=== PATIENT | female | born 1935 | race Caucasian/White ===

== ENCOUNTER 2023-03-04 23:14 | Inpatient (IN) | payer MEDICAID, OTHER ==
[~2023-03-04] VITALS: Ht 170.2 cm; Wt 95.5 kg
[~2023-03-04 23:14] MED LIST: AMLO-258 PO; ATOR10TA PO
[2023-03-05 00:18] LABS: BASOPHILS % (AUTO) 0.4 % (0.0-2.0); EOSINOPHILS % (AUTO) 0.9 % (1.0-6.0); HEMATOCRIT 47.8 % (36-46); HEMOGLOBIN 15.9 g/dL (12.0-16.0); LYMPHOCYTES # (AUTO) 1.2 K/uL (1.0-4.8); LYMPHOCYTES % (AUTO) 18.4 % (22.0-44.0); MEAN CORPUSCULAR HEMOGLOBIN 31.9 pg (26.0-34.0); MEAN CORPUSCULAR HGB CONC 33.3 G/dL (31.0-37.0); MEAN CORPUSCULAR VOLUME 96 fL (80-100); MONOCYTES # (AUTO) 0.6 K/uL (0.1-1.0); MONOCYTES % (AUTO) 9.1 % (2.0-9.0); NEUTROPHILS # (AUTO) 4.7 K/uL (1.8-7.7); NEUTROPHILS % (AUTO) 71.2 % (40.0-70.0); PLATELET COUNT (AUTO) 208 K/uL (150-450); RED BLOOD CELL COUNT(AUTO) 4.98 MIL/uL (4.00-5.20); RED CELL DISTRIBUTION WIDTH 15.5 % (11.5-14.5)
[2023-03-05 00:27] LABS: CALCIUM, TOTAL 9.1 mg/dL (8.8-10.5); CREATININE 0.97 mg/dL (0.60-1.30); POTASSIUM 3.4 mmol/L (3.5-5.1)
[2023-03-05 00:35] LABS: LACTIC ACID 1.1 mmol/L (0.4-2.0)
[2023-03-05 00:51] LABS: ALBUMIN 4.2 g/dL (3.4-5.0); BILIRUBIN,TOTAL 1.3 mg/dL (0.1-1.0); TOTAL PROTEIN, SERUM 7.7 g/dL (6.4-8.2)
[2023-03-05 00:55] LABS: APPEARANCE,URINE HAZY (CLEAR); BILIRUBIN,URINE NEGATIVE (NEGATIVE); GLUCOSE, URINE (UA) NEGATIVE (NEGATIVE); KETONES,URINE NEGATIVE (NEGATIVE); LEUKOCYTE ESTERASE ,URINE LARGE (NEGATIVE); NITRATE,URINE NEGATIVE (NEGATIVE); OCCULT BLOOD,URINE MODERATE (NEGATIVE); PH,URINE 5.5 (5.0-8.0); PROTEIN,URINE 30-70 mg/dL (NEGATIVE); SPECIFIC GRAVITIY, URINE 1.024 (1.003-1.030)
[2023-03-05 00:57] LABS: INR 1.1 (0.9-1.1); PROTHROMBIN TIME 11.8 SEC (9.4-11.6)
[2023-03-05 01:05] LABS: BACTERIA,URINE Few /HPF (None Seen); SQUAMOUS EPITHELIAL CELL,UR Moderate /LPF (None Seen); WBC,URINE 26-50 /HPF (0-5)
[2023-03-05] MEDS ORDERED: VANCOMYCIN HCL 1 GM in DEXTROSE 5%-WATER 250 ML IV ONE (03:15)
[2023-03-05] MEDS ORDERED: VANCOMYCIN 1GM/WATER(PEG/NADA) 200 ML IV ONE ×2 (03:15→04:15)
[2023-03-05] MEDS ORDERED: DEXTROSE 5%-WATER 250 ML IV ONE (04:01)
[2023-03-05 04:55] VITALS: BP 155/100
[2023-03-05] MEDS ORDERED: SODIUM CHLORIDE 0.9% 500 ML IV ONE (05:23)
[2023-03-05 07:38] VITALS: BP 130/95
[2023-03-05] MEDS ORDERED: ZOLPIDEM TARTRATE 5 MG TABLET PO PRN (11:15)
[2023-03-05] MEDS ORDERED: ACETAMINOPHEN 325 MG TABLET PO PRN (11:15)
[2023-03-05] MEDS ORDERED: ONDANSETRON HCL 4 MG/2 ML VIAL IVP PRN (11:15)
[2023-03-05] MEDS ORDERED: BISACODYL 10 MG RECTAL RECTAL SUPPOSITORY PR PRN (11:15)
[2023-03-05] MEDS ORDERED: MAGNESIUM HYDROXIDE SUSPENSION 30 ML UDCUP PO PRN (11:15)
[2023-03-05] MEDS ORDERED: MORPHINE SULFATE 2 MG/ML SYRINGE IVP PRN (11:15)
[2023-03-05] MEDS: HYDROCODONE/ACETAMINOPHEN 5-325 MG TABLET PO PRN ×2 (12:55→12:58)
[2023-03-05 15:30] VITALS: BP 116/77
[2023-03-05] MEDS: HEPARIN SODIUM,PORCINE 5,000 UNITS/ML VIAL SQ SCH ×2 (15:31→23:23)
[2023-03-05 20:47] VITALS: BP 123/74
[2023-03-05] MEDS: DOCUSATE SODIUM 100 MG CAPSULE PO SCH (21:57)
[2023-03-06 04:41] VITALS: BP 132/77
[2023-03-06 07:16] LABS: ANION GAP 8 mmol/L (8-16); CALCIUM, TOTAL 8.1 mg/dL (8.8-10.5); CARBON DIOXIDE 24 mmol/L (22-29); CHLORIDE 108 mmol/L (98-107); CREATININE 0.73 mg/dL (0.60-1.30); GLOMERULAR FILTR. RATE CALC > 60 mL/min (>60); GLUCOSE,RANDOM 106 mg/dL (70-110); POTASSIUM 4.2 mmol/L (3.5-5.1); SODIUM SERUM 140 mmol/L (136-145); UREA NITROGEN, BLOOD 18 mg/dL (7-18)
[2023-03-06] MEDS ORDERED: VANCOMYCIN 1GM/WATER(PEG/NADA) 200 ML IV SCH (08:00)
[2023-03-06 08:19] LABS: BASOPHILS % (AUTO) 1.2 % (0.0-2.0); EOSINOPHILS % (AUTO) 0.8 % (1.0-6.0); HEMOGLOBIN 14.9 g/dL (12.0-16.0); LYMPHOCYTES # (AUTO) 1.5 K/uL (1.0-4.8); MEAN CORPUSCULAR HEMOGLOBIN 32.1 pg (26.0-34.0); MEAN CORPUSCULAR HGB CONC 33.1 G/dL (31.0-37.0); MEAN CORPUSCULAR VOLUME 97 fL (80-100); MONOCYTES # (AUTO) 0.5 K/uL (0.1-1.0); MONOCYTES % (AUTO) 8.7 % (2.0-9.0); NEUTROPHILS # (AUTO) 3.6 K/uL (1.8-7.7); NEUTROPHILS % (AUTO) 63.3 % (40.0-70.0); PLATELET COUNT (AUTO) 202 K/uL (150-450); RED BLOOD CELL COUNT(AUTO) 4.64 MIL/uL (4.00-5.20); RED CELL DISTRIBUTION WIDTH 15.3 % (11.5-14.5)
[2023-03-06 08:28] VITALS: BP 132/87
[2023-03-06] MEDS: ATORVASTATIN CALCIUM 10 MG TABLET PO SCH (09:47)
[2023-03-06] MEDS: VANCOMYCIN HCL 750 MG in DEXTROSE 5%-WATER 250 ML IV SCH ×2 (09:47→20:31)
[2023-03-06] MEDS: DOCUSATE SODIUM 100 MG CAPSULE PO SCH ×2 (09:47→20:31)
[2023-03-06] MEDS: AmLODIPine BESYLATE 10 MG TABLET PO SCH (09:48)
[2023-03-06] MEDS: HEPARIN SODIUM,PORCINE 5,000 UNITS/ML VIAL SQ SCH ×3 (09:48→23:49)
[2023-03-06] MEDS: PANTOPRAZOLE SODIUM 40 MG DR TABLET PO SCH (09:48)
[2023-03-06 15:59] VITALS: BP 100/65
[2023-03-06 19:20] VITALS: BP 120/59
[2023-03-07 04:13] VITALS: BP 141/98
[2023-03-07 07:39] LABS: BASOPHILS % (AUTO) 0.6 % (0.0-2.0); EOSINOPHILS % (AUTO) 1.3 % (1.0-6.0); HEMOGLOBIN 14.1 g/dL (12.0-16.0); LYMPHOCYTES # (AUTO) 1.5 K/uL (1.0-4.8); MEAN CORPUSCULAR HEMOGLOBIN 31.6 pg (26.0-34.0); MEAN CORPUSCULAR HGB CONC 32.9 G/dL (31.0-37.0); MEAN CORPUSCULAR VOLUME 96 fL (80-100); MONOCYTES # (AUTO) 0.5 K/uL (0.1-1.0); MONOCYTES % (AUTO) 9.2 % (2.0-9.0); NEUTROPHILS # (AUTO) 3.4 K/uL (1.8-7.7); NEUTROPHILS % (AUTO) 61.9 % (40.0-70.0); PLATELET COUNT (AUTO) 200 K/uL (150-450); RED BLOOD CELL COUNT(AUTO) 4.47 MIL/uL (4.00-5.20); RED CELL DISTRIBUTION WIDTH 15.5 % (11.5-14.5)
[2023-03-07 07:42] VITALS: BP 133/91
[2023-03-07 07:51] LABS: ANION GAP 7 mmol/L (8-16); CALCIUM, TOTAL 8.2 mg/dL (8.8-10.5); CARBON DIOXIDE 26 mmol/L (22-29); CHLORIDE 108 mmol/L (98-107); CREATININE 0.76 mg/dL (0.60-1.30); GLOMERULAR FILTR. RATE CALC > 60 mL/min (>60); GLUCOSE,RANDOM 112 mg/dL (70-110); SODIUM SERUM 141 mmol/L (136-145); UREA NITROGEN, BLOOD 13 mg/dL (7-18)
[2023-03-07] MEDS: VANCOMYCIN HCL 750 MG in DEXTROSE 5%-WATER 250 ML IV SCH ×2 (07:56→20:18)
[2023-03-07] MEDS: HEPARIN SODIUM,PORCINE 5,000 UNITS/ML VIAL SQ SCH ×3 (07:56→23:12)
[2023-03-07] MEDS: ATORVASTATIN CALCIUM 10 MG TABLET PO SCH (09:01)
[2023-03-07] MEDS: PANTOPRAZOLE SODIUM 40 MG DR TABLET PO SCH (09:01)
[2023-03-07] MEDS: AmLODIPine BESYLATE 10 MG TABLET PO SCH (09:01)
[2023-03-07] MEDS: DOCUSATE SODIUM 100 MG CAPSULE PO SCH ×2 (09:02→20:20)
[2023-03-07 15:18] VITALS: BP 119/74
[2023-03-07 20:09] VITALS: BP 120/86
[2023-03-07] MEDS: HYDROCODONE/ACETAMINOPHEN 5-325 MG TABLET PO PRN (20:20)
[2023-03-08 05:26] VITALS: BP 144/80
[2023-03-08 07:28] LABS: BASOPHILS % (AUTO) 0.6 % (0.0-2.0); EOSINOPHILS % (AUTO) 1.5 % (1.0-6.0); HEMATOCRIT 45.4 % (36-46); LYMPHOCYTES # (AUTO) 1.9 K/uL (1.0-4.8); LYMPHOCYTES % (AUTO) 29.1 % (22.0-44.0); MEAN CORPUSCULAR HEMOGLOBIN 31.6 pg (26.0-34.0); MEAN CORPUSCULAR VOLUME 96 fL (80-100); MONOCYTES # (AUTO) 0.6 K/uL (0.1-1.0); MONOCYTES % (AUTO) 9.5 % (2.0-9.0); NEUTROPHILS # (AUTO) 3.8 K/uL (1.8-7.7); NEUTROPHILS % (AUTO) 59.3 % (40.0-70.0); PLATELET COUNT (AUTO) 200 K/uL (150-450); RED BLOOD CELL COUNT(AUTO) 4.75 MIL/uL (4.00-5.20); RED CELL DISTRIBUTION WIDTH 15.5 % (11.5-14.5)
[2023-03-08 07:39] LABS: ANION GAP 6 mmol/L (8-16); CALCIUM, TOTAL 8.6 mg/dL (8.8-10.5); CARBON DIOXIDE 28 mmol/L (22-29); CHLORIDE 106 mmol/L (98-107); CREATININE 0.86 mg/dL (0.60-1.30); GLOMERULAR FILTR. RATE CALC > 60 mL/min (>60); GLUCOSE,RANDOM 112 mg/dL (70-110); POTASSIUM 4.6 mmol/L (3.5-5.1); SODIUM SERUM 140 mmol/L (136-145); UREA NITROGEN, BLOOD 14 mg/dL (7-18); VANCOMYCIN,RANDOM 16.9 mcg/mL (25.0-50.0)
[2023-03-08] MEDS: VANCOMYCIN HCL 750 MG in DEXTROSE 5%-WATER 250 ML IV SCH ×2 (08:02→19:24)
[2023-03-08] MEDS: HEPARIN SODIUM,PORCINE 5,000 UNITS/ML VIAL SQ SCH ×3 (08:03→23:11)
[2023-03-08] MEDS: DOCUSATE SODIUM 100 MG CAPSULE PO SCH ×2 (08:04→19:24)
[2023-03-08] MEDS: AmLODIPine BESYLATE 10 MG TABLET PO SCH (08:04)
[2023-03-08] MEDS: ATORVASTATIN CALCIUM 10 MG TABLET PO SCH (08:04)
[2023-03-08] MEDS: PANTOPRAZOLE SODIUM 40 MG DR TABLET PO SCH (08:05)
[2023-03-08 08:12] VITALS: BP 140/78
[2023-03-08 15:13] VITALS: BP 138/82
[2023-03-08] MEDS ORDERED: BISACODYL 5 MG EC TABLET PO PRN (15:45)
[2023-03-08] MEDS ORDERED: SODIUM CHLORIDE 0.9% 500 ML IV ONE (19:20)
[2023-03-08 19:54] VITALS: BP 143/86
[2023-03-09 04:57] VITALS: BP 116/76
[2023-03-09 07:14] LABS: ANION GAP 5 mmol/L (8-16); CALCIUM, TOTAL 8.7 mg/dL (8.8-10.5); CARBON DIOXIDE 28 mmol/L (22-29); CHLORIDE 104 mmol/L (98-107); CREATININE 0.88 mg/dL (0.60-1.30); GLOMERULAR FILTR. RATE CALC > 60 mL/min (>60); GLUCOSE,RANDOM 138 mg/dL (70-110); SODIUM SERUM 137 mmol/L (136-145); UREA NITROGEN, BLOOD 14 mg/dL (7-18)
[2023-03-09 08:00] VITALS: BP 126/75
[2023-03-09] MEDS: PANTOPRAZOLE SODIUM 40 MG DR TABLET PO SCH (08:02)
[2023-03-09] MEDS: AmLODIPine BESYLATE 10 MG TABLET PO SCH (08:02)
[2023-03-09] MEDS: DOCUSATE SODIUM 100 MG CAPSULE PO SCH ×2 (08:02→20:05)
[2023-03-09] MEDS: VANCOMYCIN HCL 750 MG in DEXTROSE 5%-WATER 250 ML IV SCH ×2 (08:02→20:05)
[2023-03-09] MEDS: HEPARIN SODIUM,PORCINE 5,000 UNITS/ML VIAL SQ SCH ×2 (08:02→16:00)
[2023-03-09] MEDS: ATORVASTATIN CALCIUM 10 MG TABLET PO SCH (08:02)
[2023-03-09 15:18] VITALS: BP 124/83
[2023-03-09 19:45] VITALS: BP 123/70
[2023-03-10 05:41] VITALS: BP 129/89
[2023-03-10 07:46] VITALS: BP 119/74
[2023-03-10 07:48] LABS: ANION GAP 8 mmol/L (8-16); CALCIUM, TOTAL 8.7 mg/dL (8.8-10.5); CARBON DIOXIDE 26 mmol/L (22-29); CHLORIDE 106 mmol/L (98-107); CREATININE 0.82 mg/dL (0.60-1.30); GLOMERULAR FILTR. RATE CALC > 60 mL/min (>60); GLUCOSE,RANDOM 121 mg/dL (70-110); POTASSIUM 4.3 mmol/L (3.5-5.1); SODIUM SERUM 140 mmol/L (136-145); UREA NITROGEN, BLOOD 16 mg/dL (7-18)
[2023-03-10 08:18] VITALS: BP 107/79
[2023-03-10] MEDS: HEPARIN SODIUM,PORCINE 5,000 UNITS/ML VIAL SQ SCH ×4 (08:20→23:45)
[2023-03-10] MEDS: PANTOPRAZOLE SODIUM 40 MG DR TABLET PO SCH (08:20)
[2023-03-10] MEDS: AmLODIPine BESYLATE 10 MG TABLET PO SCH (08:20)
[2023-03-10] MEDS: ATORVASTATIN CALCIUM 10 MG TABLET PO SCH (08:20)
[2023-03-10] MEDS: DOCUSATE SODIUM 100 MG CAPSULE PO SCH ×2 (08:20→19:50)
[2023-03-10] MEDS: VANCOMYCIN HCL 750 MG in DEXTROSE 5%-WATER 250 ML IV SCH ×2 (08:23→19:50)
[2023-03-10 11:23] VITALS: BP 110/60
[2023-03-10 15:14] VITALS: BP 116/73
[2023-03-10] MEDS: CefTRIAXone 1 GM/DEXTROSE 50 ML IV SCH (16:20)
[2023-03-10 19:53] VITALS: BP 114/78
[2023-03-11 03:50] VITALS: BP 139/93
[2023-03-11 07:52] LABS: ANION GAP 6 mmol/L (8-16); CALCIUM, TOTAL 8.7 mg/dL (8.8-10.5); CARBON DIOXIDE 27 mmol/L (22-29); CHLORIDE 107 mmol/L (98-107); CREATININE 0.84 mg/dL (0.60-1.30); GLOMERULAR FILTR. RATE CALC > 60 mL/min (>60); GLUCOSE,RANDOM 122 mg/dL (70-110); SODIUM SERUM 140 mmol/L (136-145); UREA NITROGEN, BLOOD 16 mg/dL (7-18); VANCOMYCIN,RANDOM 19.5 mcg/mL (25.0-50.0)
[2023-03-11 08:00] VITALS: BP 113/69
[2023-03-11] MEDS: HEPARIN SODIUM,PORCINE 5,000 UNITS/ML VIAL SQ SCH ×3 (08:22→23:21)
[2023-03-11] MEDS: ATORVASTATIN CALCIUM 10 MG TABLET PO SCH (08:22)
[2023-03-11] MEDS: PANTOPRAZOLE SODIUM 40 MG DR TABLET PO SCH (08:22)
[2023-03-11] MEDS: DOCUSATE SODIUM 100 MG CAPSULE PO SCH ×2 (08:22→20:00)
[2023-03-11] MEDS: AmLODIPine BESYLATE 10 MG TABLET PO SCH (08:22)
[2023-03-11] MEDS: VANCOMYCIN HCL 750 MG in DEXTROSE 5%-WATER 250 ML IV SCH ×2 (08:27→19:52)
[2023-03-11 15:00] VITALS: BP 115/68
[2023-03-11] MEDS ORDERED: SULF-261 PO (15:03)
[2023-03-11] MEDS ORDERED: CEFD300C18 PO (15:04)
[2023-03-11] MEDS ORDERED: PANT-31 PO (15:05)
[2023-03-11] MEDS: CefTRIAXone 1 GM/DEXTROSE 50 ML IV SCH (16:40)
[2023-03-11 20:03] VITALS: BP 126/69
[2023-03-12 04:17] VITALS: BP 133/77
[2023-03-12] MEDS: VANCOMYCIN HCL 750 MG in DEXTROSE 5%-WATER 250 ML IV SCH (08:00)
[2023-03-12 08:32] VITALS: BP 130/78
[2023-03-12] MEDS: HEPARIN SODIUM,PORCINE 5,000 UNITS/ML VIAL SQ SCH (08:54)
[2023-03-12] MEDS: ATORVASTATIN CALCIUM 10 MG TABLET PO SCH (08:54)
[2023-03-12] MEDS: AmLODIPine BESYLATE 10 MG TABLET PO SCH (08:54)
[2023-03-12] MEDS: PANTOPRAZOLE SODIUM 40 MG DR TABLET PO SCH (08:54)
[2023-03-12] MEDS: DOCUSATE SODIUM 100 MG CAPSULE PO SCH (08:54)
== END 2023-03-12 10:30 | disposition home or self-care (01) | DRG 383 ==
LOC: EMS 23:14 → 6S 03-05 04:23
PROVIDERS: ADMIT Hospitalist; ATTEND Hospitalist
DX: L03.115 Cellulitis of right lower limb (principal); G93.41 Metabolic encephalopathy; E78.5 Hyperlipidemia, unspecified; E86.0 Dehydration; I48.91 Unspecified atrial fibrillation; E87.6 Hypokalemia; L03.116 Cellulitis of left lower limb; I10 Essential (primary) hypertension; K59.00 Constipation, unspecified; R79.89 Other specified abnormal findings of blood chemistry; Z79.899 Other long term (current) drug therapy; Z59.00 Homelessness unspecified
CPT/HCPCS: 51702; 70450; 71045; 80048; 80053; 80202; 81001; 82550; 83605; 84484; 85025; 85610; 85730; 87040; 87086; 87186; 93005; 93970; 97116; 97162; 97165; 97530; 97535; 99285; J0696; J1644; J3370; J7040; J7060; Q9967; 36415-L1; 36415-TC